=== PATIENT | female | born 1965 | race Two or more races ===

== ENCOUNTER 2017-09-01 07:22 | Outpatient (CLI) | payer OTHER ==
[~2017-09-01 07:22] MED LIST: ALDACTONE25 MG PO; BUCALSEP SPRAY30 ML MM; CIPRO500 MG PO; CLARITIN10 MG PO; COZAAR100 MG PO; ELOCON45 G1 TP; FLEXERIL10 MG PO; FLONASE16 GM NS; FLUCONAZOLE150 MG PO; GILTUSS TR TAB1 EACH PO; GLUCOTROL10 MG PO; GLUMETZA1000 MG PO; JARDIANCE25 MG PO; KETO10TA2 PO; LEVAQUIN750 MG PO; LEVSIN/SL0.125 MG PO; LIPITOR20 MG PO; LOTRISONE CREAM45 GM TP; METFORMIN HCL1000 MG; METFORMIN HCL1000 MG PO; MOTRIN800 MG PO; NAPR500T14 PO; NORVASC10 MG PO; ORALSEP; ORPH100T PO; PERCOCET 5-3251 EACH PO; SYNTHROID150 MCG PO; SYNTHROID50 MCG PO; TESSALON PERLE100 MG PO; TOPROL XL25 M1; TOPROL XL25 M1 PO; TORADOL60 MG IM; VENTOLIN HFA18 GM IH; ZANTAC150 MG PO; ZITHROMAX TRI-500 MG PO; ZITHROMAX200 MG PO; ZITHROMAX500 MG PO; ZYRTEC10 MG PO
== END 2017-09-01 07:34 | disposition home or self-care (01) ==
LOC: LAB 07:22
DX: E83.51 Hypocalcemia (principal); D50.9 Iron deficiency anemia, unspecified; D68.9 Coagulation defect, unspecified; N39.0 Urinary tract infection, site not specified; E03.9 Hypothyroidism, unspecified; Z13.1 Encounter for screening for diabetes mellitus

== ENCOUNTER → 2017-09-17 | Outpatient (CLI) | payer OTHER ==
[~2017-09-17] VITALS: Ht 152.4 cm; Wt 117.5 kg
== END | disposition home or self-care (01) ==
LOC: PPHC 07-01 07:38
DX: Z76.0 Encounter for issue of repeat prescription (principal)

== ENCOUNTER → 2017-11-10 | Emergency (ER) | payer OTHER ==
[~2017-11-10] VITALS: Ht 160 cm; Wt 116.1 kg
[~2017-11-10] MED LIST changes: +BUDESONIDE0.5 MG/2 M IH; +MUCINEX DM ER1 EAC1 PO; +PREDNISOLO15 MG/5 ML PO; +PROMETHAZINE W118 ML PO; +XOPENEX CO1.25 MG/0. IH
== END | disposition home or self-care (01) ==
LOC: ER 23:22
DX: J06.9 Acute upper respiratory infection, unspecified (principal); J03.80 Acute tonsillitis due to other specified organisms

== ENCOUNTER 2017-11-27 11:39 | Emergency (ER) | payer OTHER ==
[~2017-11-27] VITALS: Ht 160 cm; Wt 115.7 kg
== END 2017-11-27 15:26 | disposition home or self-care (01) ==
LOC: ER 11:39 → CPU-OBS 11:40 → ER 15:26
DX: R07.89 Other chest pain (principal)
CPT/HCPCS: G0378; G0379; 93005

== ENCOUNTER → 2017-12-14 | Outpatient (CLI) | payer OTHER | END | disposition home or self-care (01) | LOC: PPHC 12-13 08:29 | DX: Z00.8 Encounter for other general examination (principal) ==

== ENCOUNTER 2017-12-22 10:10 | Emergency (ER) | payer OTHER ==
[~2017-12-22] VITALS: Ht 160 cm; Wt 117.9 kg
== END 2017-12-22 14:19 | disposition home or self-care (01) ==
LOC: ER 10:10
DX: E11.621 Type 2 diabetes mellitus with foot ulcer (principal); L97.513 Non-pressure chronic ulcer of other part of right foot with necrosis of muscle

== ENCOUNTER 2017-12-28 08:19 | Outpatient (CLI) | payer OTHER | END 2017-12-28 08:24 | disposition home or self-care (01) | LOC: LAB 08:19 | DX: E11.65 Type 2 diabetes mellitus with hyperglycemia (principal); E78.00 Pure hypercholesterolemia, unspecified; E89.0 Postprocedural hypothyroidism ==

== ENCOUNTER 2018-01-04 17:48 | Inpatient (IN) | payer OTHER ==
[~2018-01-04] VITALS: Ht 160 cm; Wt 117.9 kg
[2018-01-07] MEDS ORDERED: CLOTRIMAZOLE-745 GM TOP (07:49)
== END 2018-01-07 15:01 | disposition home health service (06) | DRG 638 ==
LOC: ER 17:48 → SEC-K 01-05 11:28 → MEDJ 01-05 11:28
PROC: BQ3MY0Z Magnetic Resonance Imaging (MRI) of Left Foot using Other Contrast, Unenhanced and Enhanced (ICD-10-PCS; principal; 2018-01-05)
PROC: 02HV33Z Insertion of Infusion Device into Superior Vena Cava, Percutaneous Approach (ICD-10-PCS; 2018-01-05)
DX: E11.621 Type 2 diabetes mellitus with foot ulcer (principal); L97.528 Non-pressure chronic ulcer of other part of left foot with other specified severity; I10 Essential (primary) hypertension; E03.8 Other specified hypothyroidism; E66.01 Morbid (severe) obesity due to excess calories; J45.20 Mild intermittent asthma, uncomplicated; E78.4 Other hyperlipidemia; B95.62 Methicillin resistant Staphylococcus aureus infection as the cause of diseases classified elsewhere

== ENCOUNTER 2018-01-23 07:13 | Outpatient (CLI) | payer OTHER ==
[~2018-01-23 07:13] MED LIST changes: +CLOTRIMAZOLE-745 GM TOP
== END 2018-01-23 07:35 | disposition home or self-care (01) ==
LOC: LAB 07:13
DX: E78.2 Mixed hyperlipidemia (principal); E11.8 Type 2 diabetes mellitus with unspecified complications; I11.9 Hypertensive heart disease without heart failure; E66.01 Morbid (severe) obesity due to excess calories; I25.10 Atherosclerotic heart disease of native coronary artery without angina pectoris; E11.9 Type 2 diabetes mellitus without complications

== ENCOUNTER 2018-03-10 07:03 | Outpatient (CLI) | payer OTHER | END 2018-03-10 07:09 | disposition home or self-care (01) | LOC: MAMO-SONO 07:03 | DX: Z12.31 Encounter for screening mammogram for malignant neoplasm of breast (principal); N64.4 Mastodynia ==

== ENCOUNTER → 2018-04-18 06:25 | Outpatient (CLI) | payer OTHER | END | disposition home or self-care (01) | LOC: LAB 06:25 | DX: E11.65 Type 2 diabetes mellitus with hyperglycemia (principal); N18.3 Chronic kidney disease, stage 3 (moderate); E11.21 Type 2 diabetes mellitus with diabetic nephropathy; D63.1 Anemia in chronic kidney disease; N30.00 Acute cystitis without hematuria; R39.0 Extravasation of urine; E78.4 Other hyperlipidemia; E03.8 Other specified hypothyroidism ==

== ENCOUNTER 2018-04-18 06:57 | Outpatient (CLI) | payer OTHER ==
[~2018-04-18 06:57] MED LIST changes: -BUDESONIDE0.5 MG/2 M IH; -CLOTRIMAZOLE-745 GM TOP; -JARDIANCE25 MG PO; -LEVAQUIN750 MG PO; -METFORMIN HCL1000 MG PO; -MUCINEX DM ER1 EAC1 PO; -NAPR500T14 PO; -PERCOCET 5-3251 EACH PO; -PREDNISOLO15 MG/5 ML PO; -PROMETHAZINE W118 ML PO; -XOPENEX CO1.25 MG/0. IH
== END 2018-04-18 07:01 | disposition home or self-care (01) ==
LOC: SONOGRAMA 06:57
DX: R10.84 Generalized abdominal pain (principal); N18.3 Chronic kidney disease, stage 3 (moderate); R31.9 Hematuria, unspecified

== ENCOUNTER 2018-07-14 10:14 | Outpatient (CLI) | payer OTHER ==
[~2018-07-14 10:14] MED LIST changes: +BUDESONIDE0.5 MG/2 M IH; +CLOTRIMAZOLE-745 GM TOP; +JARDIANCE25 MG PO; +LEVAQUIN750 MG PO; +METFORMIN HCL1000 MG PO; +MUCINEX DM ER1 EAC1 PO; +NAPR500T14 PO; +PERCOCET 5-3251 EACH PO; +PREDNISOLO15 MG/5 ML PO; +PROMETHAZINE W118 ML PO; +XOPENEX CO1.25 MG/0. IH
== END 2018-07-14 10:20 | disposition home or self-care (01) ==
LOC: LAB 10:14
DX: J00 Acute nasopharyngitis [common cold] (principal); R50.9 Fever, unspecified

== ENCOUNTER 2018-07-27 07:41 | Outpatient (CLI) | payer OTHER | END 2018-07-27 09:18 | disposition home or self-care (01) | LOC: LAB 07:41 | DX: I10 Essential (primary) hypertension (principal); M54.5 Low back pain; Z01.810 Encounter for preprocedural cardiovascular examination; E11.51 Type 2 diabetes mellitus with diabetic peripheral angiopathy without gangrene; E55.9 Vitamin D deficiency, unspecified; E11.9 Type 2 diabetes mellitus without complications; E66.8 Other obesity; N18.3 Chronic kidney disease, stage 3 (moderate); E11.21 Type 2 diabetes mellitus with diabetic nephropathy; N30.00 Acute cystitis without hematuria; E11.65 Type 2 diabetes mellitus with hyperglycemia; E78.00 Pure hypercholesterolemia, unspecified; E03.8 Other specified hypothyroidism; E78.89 Other lipoprotein metabolism disorders ==

== ENCOUNTER → 2018-07-28 06:54 | Outpatient (CLI) | payer OTHER | END | disposition home or self-care (01) | LOC: LAB 06:54 | DX: I10 Essential (primary) hypertension (principal); M54.5 Low back pain; Z01.810 Encounter for preprocedural cardiovascular examination; E11.51 Type 2 diabetes mellitus with diabetic peripheral angiopathy without gangrene; E55.9 Vitamin D deficiency, unspecified; E11.9 Type 2 diabetes mellitus without complications; E66.8 Other obesity; E03.8 Other specified hypothyroidism; E78.89 Other lipoprotein metabolism disorders ==

== ENCOUNTER 2018-10-12 09:04 | Outpatient (CLI) | payer OTHER | END 2018-10-12 11:59 | disposition HB | LOC: LAB 09:04 | DX: E03.8 Other specified hypothyroidism (principal); E11.51 Type 2 diabetes mellitus with diabetic peripheral angiopathy without gangrene; E11.9 Type 2 diabetes mellitus without complications; E55.9 Vitamin D deficiency, unspecified; E66.8 Other obesity; E78.89 Other lipoprotein metabolism disorders; M54.5 Low back pain; Z01.810 Encounter for preprocedural cardiovascular examination; I11.9 Hypertensive heart disease without heart failure; N18.9 Chronic kidney disease, unspecified ==

== ENCOUNTER 2018-11-17 10:08 | Emergency (ER) | payer OTHER ==
[~2018-11-17] VITALS: Ht 160 cm; Wt 125.2 kg
[2018-11-17] MEDS ORDERED: GLUCOTROL10 MG PO (10:14)
[2018-11-17] MEDS ORDERED: COREG CR10 MG PO (10:15)
[2018-11-17] MEDS ORDERED: ZITHROMAX TRI-500 MG PO (13:18)
[2018-11-17] MEDS ORDERED: MAALOX MAXIMUM355 ML PO (13:18)
== END 2018-11-17 14:57 | disposition home or self-care (01) ==
LOC: ER 10:08
DX: J04.0 Acute laryngitis (principal); J06.9 Acute upper respiratory infection, unspecified

== ENCOUNTER 2019-02-07 07:11 | Outpatient (CLI) | payer OTHER ==
[~2019-02-07 07:11] MED LIST changes: +COREG CR10 MG PO; +MAALOX MAXIMUM355 ML PO
== END 2019-02-07 07:27 | disposition home or self-care (01) ==
LOC: MAMO-SONO 07:11
DX: N64.4 Mastodynia (principal); Z12.31 Encounter for screening mammogram for malignant neoplasm of breast

== ENCOUNTER 2019-02-07 07:34 | Outpatient (CLI) | payer OTHER | END 2019-02-07 07:49 | disposition home or self-care (01) | LOC: LAB 07:34 | DX: D64.89 Other specified anemias (principal); R10.84 Generalized abdominal pain; E78.49 Other hyperlipidemia; R80.8 Other proteinuria; E11.65 Type 2 diabetes mellitus with hyperglycemia; E78.00 Pure hypercholesterolemia, unspecified; E03.8 Other specified hypothyroidism; I11.9 Hypertensive heart disease without heart failure; M54.5 Low back pain; E11.51 Type 2 diabetes mellitus with diabetic peripheral angiopathy without gangrene; E11.9 Type 2 diabetes mellitus without complications; E55.9 Vitamin D deficiency, unspecified; E66.8 Other obesity; E78.89 Other lipoprotein metabolism disorders ==

== ENCOUNTER → 2019-02-09 | Outpatient (CLI) | payer OTHER | END | disposition home or self-care (01) | LOC: SONOGRAMA 11:07 | DX: N64.4 Mastodynia (principal) ==

== ENCOUNTER 2019-03-01 07:39 | Outpatient (CLI) | payer OTHER | END 2019-03-01 17:00 | disposition home or self-care (01) | LOC: SONOGRAMA 07:39 | DX: D25.9 Leiomyoma of uterus, unspecified (principal) ==

== ENCOUNTER 2019-03-02 15:09 | Emergency (ER) | payer OTHER ==
[~2019-03-02] VITALS: Ht 160 cm; Wt 122.9 kg
== END 2019-03-02 17:14 | disposition home or self-care (01) ==
LOC: ER 15:09
DX: S40.012A Contusion of left shoulder, initial encounter (principal); M54.2 Cervicalgia; W18.39XA Other fall on same level, initial encounter; Y93.89 Activity, other specified; Y92.098 Other place in other non-institutional residence as the place of occurrence of the external cause; Y99.8 Other external cause status

== ENCOUNTER 2019-05-07 06:41 | Outpatient (CLI) | payer OTHER | END 2019-05-07 06:46 | disposition home or self-care (01) | LOC: LAB 06:41 | DX: E11.65 Type 2 diabetes mellitus with hyperglycemia (principal); E78.01 Familial hypercholesterolemia ==

== ENCOUNTER 2019-05-14 07:29 | Outpatient (CLI) | payer OTHER | END 2019-05-14 07:36 | disposition home or self-care (01) | LOC: LAB 07:29 | DX: N18.3 Chronic kidney disease, stage 3 (moderate) (principal); E11.21 Type 2 diabetes mellitus with diabetic nephropathy; D63.1 Anemia in chronic kidney disease; N30.00 Acute cystitis without hematuria; E78.49 Other hyperlipidemia; E03.8 Other specified hypothyroidism ==

== ENCOUNTER → 2019-05-22 07:28 | Outpatient (CLI) | payer OTHER | END | disposition home or self-care (01) | LOC: LAB 07:28 | DX: I11.9 Hypertensive heart disease without heart failure (principal); M54.5 Low back pain; E03.8 Other specified hypothyroidism; E11.51 Type 2 diabetes mellitus with diabetic peripheral angiopathy without gangrene; E55.9 Vitamin D deficiency, unspecified; E66.8 Other obesity; E78.89 Other lipoprotein metabolism disorders ==

== ENCOUNTER 2019-06-01 21:11 | Emergency (ER) | payer OTHER ==
[~2019-06-01] VITALS: Ht 160 cm; Wt 114.8 kg
== END 2019-06-01 23:31 | disposition home or self-care (01) ==
LOC: ER 21:11
DX: B34.9 Viral infection, unspecified (principal)

== ENCOUNTER → 2019-07-18 07:26 | Outpatient (CLI) | payer OTHER ==
[~2019-07-18 07:26] MED LIST changes: +ATACAND32 MG PO; +HUMALOG100 UNIT/1 SUBCUTANEO; +LANTUS SOL100 UNIT/1 SUBCUTANEO
== END | disposition home or self-care (01) ==
LOC: LAB 07:26
DX: M12.212 Villonodular synovitis (pigmented), left shoulder (principal); M75.122 Complete rotator cuff tear or rupture of left shoulder, not specified as traumatic; M66.822 Spontaneous rupture of other tendons, left upper arm; M75.22 Bicipital tendinitis, left shoulder

== ENCOUNTER 2019-07-30 06:20 | Day surgery (SDC) | payer OTHER ==
[2019-07-30] MEDS ORDERED: OXYC1TAB9 PO (14:42)
[2019-07-30] MEDS ORDERED: DUI500 PO (14:42)
== END 2019-07-30 19:25 | disposition home or self-care (01) ==
LOC: CIR.AMB 06:20
DX: M75.122 Complete rotator cuff tear or rupture of left shoulder, not specified as traumatic (principal); M12.212 Villonodular synovitis (pigmented), left shoulder; M66.822 Spontaneous rupture of other tendons, left upper arm; M75.22 Bicipital tendinitis, left shoulder

== ENCOUNTER 2019-08-25 09:28 | Outpatient (CLI) | payer OTHER ==
[~2019-08-25 09:28] MED LIST changes: +DUI500 PO; +OXYC1TAB9 PO
== END 2019-08-25 09:37 | disposition home or self-care (01) ==
LOC: LAB 09:28
DX: D64.89 Other specified anemias (principal); R10.84 Generalized abdominal pain; E78.49 Other hyperlipidemia; E11.9 Type 2 diabetes mellitus without complications; R73.09 Other abnormal glucose

== ENCOUNTER 2019-09-18 07:48 | Outpatient (CLI) | payer OTHER | END 2019-09-18 08:22 | disposition home or self-care (01) | LOC: NUCLEAR 07:48 | DX: I10 Essential (primary) hypertension (principal) ==

== ENCOUNTER 2019-10-01 09:07 | Outpatient (CLI) | payer OTHER | END 2019-10-01 09:12 | disposition home or self-care (01) | LOC: RAD 09:07 | DX: M79.672 Pain in left foot (principal) ==

== ENCOUNTER → 2019-10-03 07:08 | Outpatient (CLI) | payer OTHER | END | disposition home or self-care (01) | LOC: LAB 07:08 | DX: R10.2 Pelvic and perineal pain (principal); R10.30 Lower abdominal pain, unspecified; N93.8 Other specified abnormal uterine and vaginal bleeding; E11.65 Type 2 diabetes mellitus with hyperglycemia; I10 Essential (primary) hypertension; E78.2 Mixed hyperlipidemia ==

== ENCOUNTER 2019-10-03 07:13 | Outpatient (CLI) | payer OTHER | END 2019-10-03 10:47 | disposition home or self-care (01) | LOC: SONOGRAMA 07:13 | DX: R10.2 Pelvic and perineal pain (principal); N93.8 Other specified abnormal uterine and vaginal bleeding ==

== ENCOUNTER → 2020-02-24 | Emergency (ER) | payer OTHER ==
[~2020-02-24] VITALS: Ht 160 cm; Wt 120.2 kg
== END | disposition home or self-care (01) ==
LOC: ER 06:58
DX: R53.1 Weakness (principal)

== ENCOUNTER 2020-03-06 12:09 | Emergency (ER) | payer OTHER ==
[~2020-03-06] VITALS: Ht 157.5 cm; Wt 114.8 kg
== END 2020-03-06 18:16 | disposition designated cancer center or children's hospital (05) ==
LOC: ER 12:09
DX: E11.52 Type 2 diabetes mellitus with diabetic peripheral angiopathy with gangrene (principal); I96 Gangrene, not elsewhere classified; L97.512 Non-pressure chronic ulcer of other part of right foot with fat layer exposed

== ENCOUNTER 2020-07-29 09:59 | Outpatient (CLI) | payer OTHER | END 2020-07-29 10:09 | disposition home or self-care (01) | LOC: MAMO-SONO 09:59 | PROVIDERS: ATTEND General Practice | DX: Z12.31 Encounter for screening mammogram for malignant neoplasm of breast (principal); N64.59 Other signs and symptoms in breast ==

== ENCOUNTER 2020-07-29 11:14 | Outpatient (CLI) | payer OTHER | END 2020-07-29 11:23 | disposition home or self-care (01) | LOC: LAB 11:14 | PROVIDERS: ATTEND Internal Medicine | DX: D64.89 Other specified anemias (principal); Z03.818 Encounter for observation for suspected exposure to other biological agents ruled out; E55.9 Vitamin D deficiency, unspecified; N39.0 Urinary tract infection, site not specified; E78.2 Mixed hyperlipidemia; E11.29 Type 2 diabetes mellitus with other diabetic kidney complication ==

== ENCOUNTER 2020-10-16 09:21 | Outpatient (CLI) | payer OTHER | END 2020-10-16 09:25 | disposition home or self-care (01) | LOC: NUCLEAR 09:21 | PROVIDERS: ATTEND Internal Medicine | DX: I10 Essential (primary) hypertension (principal); E78.2 Mixed hyperlipidemia; E26.89 Other hyperaldosteronism; E66.8 Other obesity; N18.9 Chronic kidney disease, unspecified; E11.9 Type 2 diabetes mellitus without complications; E11.21 Type 2 diabetes mellitus with diabetic nephropathy; G45.1 Carotid artery syndrome (hemispheric) ==

== ENCOUNTER → 2020-10-16 | Outpatient (CLI) | payer OTHER | END | disposition home or self-care (01) | LOC: RAD 08:28 | PROVIDERS: ATTEND Physical Medicine & Rehabilitation | DX: M79.672 Pain in left foot (principal); M54.2 Cervicalgia; M54.5 Low back pain ==

== ENCOUNTER 2020-10-24 07:12 | Outpatient (CLI) | payer OTHER | END 2020-10-24 07:36 | disposition home or self-care (01) | LOC: LAB 07:12 | PROVIDERS: ATTEND Internal Medicine | DX: E03.8 Other specified hypothyroidism (principal); E66.8 Other obesity; M54.5 Low back pain; E11.9 Type 2 diabetes mellitus without complications; E55.9 Vitamin D deficiency, unspecified; E78.89 Other lipoprotein metabolism disorders ==

== ENCOUNTER 2020-10-31 07:33 | Outpatient (CLI) | payer OTHER | END 2020-10-31 07:38 | disposition home or self-care (01) | LOC: LAB 07:33 | PROVIDERS: ATTEND Specialist/Technologist, Other Nephrology | DX: N30.00 Acute cystitis without hematuria (principal); E03.8 Other specified hypothyroidism; D63.1 Anemia in chronic kidney disease; E11.21 Type 2 diabetes mellitus with diabetic nephropathy; N18.30 Chronic kidney disease, stage 3 unspecified ==

== ENCOUNTER → 2021-01-15 | Outpatient (CLI) | payer OTHER | END | disposition home or self-care (01) | LOC: LAB 06:40 | PROVIDERS: ATTEND Internal Medicine | DX: I10 Essential (primary) hypertension (principal); M54.5 Low back pain; I11.9 Hypertensive heart disease without heart failure; E03.9 Hypothyroidism, unspecified; E11.51 Type 2 diabetes mellitus with diabetic peripheral angiopathy without gangrene; E11.42 Type 2 diabetes mellitus with diabetic polyneuropathy; E55.9 Vitamin D deficiency, unspecified; E66.8 Other obesity; E78.9 Disorder of lipoprotein metabolism, unspecified; E11.65 Type 2 diabetes mellitus with hyperglycemia; Z89.611 Acquired absence of right leg above knee; Z79.84 Long term (current) use of oral hypoglycemic drugs ==

== ENCOUNTER → 2021-06-25 08:30 | Outpatient (CLI) | payer OTHER | END | disposition home or self-care (01) | LOC: LAB 08:30 | PROVIDERS: ATTEND General Practice | DX: I10 Essential (primary) hypertension (principal); E78.49 Other hyperlipidemia; E03.8 Other specified hypothyroidism; E55.9 Vitamin D deficiency, unspecified; R19.5 Other fecal abnormalities; E11.9 Type 2 diabetes mellitus without complications ==

== ENCOUNTER 2021-06-30 09:43 | Outpatient (CLI) | payer OTHER | END 2021-06-30 09:58 | disposition home or self-care (01) | LOC: MAMO-SONO 09:43 | PROVIDERS: ATTEND General Practice | DX: R92.0 Mammographic microcalcification found on diagnostic imaging of breast (principal); Z12.31 Encounter for screening mammogram for malignant neoplasm of breast ==

== ENCOUNTER 2021-06-30 12:42 | Outpatient (CLI) | payer OTHER | END 2021-06-30 15:00 | disposition home or self-care (01) | LOC: LAB 12:42 | PROVIDERS: ATTEND General Practice | DX: E03.8 Other specified hypothyroidism (principal); I10 Essential (primary) hypertension; E78.49 Other hyperlipidemia; E55.9 Vitamin D deficiency, unspecified; R19.5 Other fecal abnormalities; E11.9 Type 2 diabetes mellitus without complications ==

== ENCOUNTER 2021-08-17 09:04 | Emergency (ER) | payer OTHER ==
[~2021-08-17] VITALS: Ht 160 cm; Wt 117.0 kg
[2021-08-17] MEDS ORDERED: ELIQUIS5 M1 PO (09:14)
== END 2021-08-17 12:48 | disposition home or self-care (01) ==
LOC: ER 09:04
DX: U07.1 COVID-19 (principal); E11.9 Type 2 diabetes mellitus without complications; I10 Essential (primary) hypertension; Z79.4 Long term (current) use of insulin

== ENCOUNTER 2021-08-31 14:50 | Outpatient (CLI) | payer OTHER ==
[~2021-08-31 14:50] MED LIST changes: +ELIQUIS5 M1 PO
== END 2021-08-31 15:00 | disposition home or self-care (01) ==
LOC: PPH VACUNA 14:50
PROVIDERS: ATTEND Emergency Medicine Pediatric Emergency Medicine
DX: Z23 Encounter for immunization (principal)

== ENCOUNTER 2021-10-14 12:56 | Outpatient (CLI) | payer OTHER | END 2021-10-14 12:57 | disposition home or self-care (01) | LOC: NUCLEAR 12:56 | PROVIDERS: ATTEND General Practice | DX: M85.89 Other specified disorders of bone density and structure, multiple sites (principal); Z13.820 Encounter for screening for osteoporosis ==

== ENCOUNTER 2021-10-28 09:56 | Outpatient (CLI) | payer OTHER | END 2021-10-28 09:57 | disposition home or self-care (01) | LOC: NUCLEAR 09:56 | PROVIDERS: ATTEND General Practice | DX: I82.409 Acute embolism and thrombosis of unspecified deep veins of unspecified lower extremity (principal); I74.9 Embolism and thrombosis of unspecified artery ==

== ENCOUNTER 2021-10-29 10:10 | Outpatient (CLI) | payer OTHER | END 2021-10-29 10:11 | disposition home or self-care (01) | LOC: NUCLEAR 10:10 | PROVIDERS: ATTEND General Practice | DX: I82.409 Acute embolism and thrombosis of unspecified deep veins of unspecified lower extremity (principal) ==

== ENCOUNTER 2021-11-03 08:13 | Outpatient (CLI) | payer OTHER | END 2021-11-03 08:14 | disposition home or self-care (01) | LOC: NUCLEAR 08:13 | PROVIDERS: ATTEND General Practice | DX: C54.1 Malignant neoplasm of endometrium (principal) ==

== ENCOUNTER 2022-07-01 07:30 | Outpatient (CLI) | payer OTHER | END 2022-07-01 07:45 | disposition home or self-care (01) | LOC: MAMO-SONO 07:30 | PROVIDERS: ATTEND Obstetrics & Gynecology Gynecologic Oncology | DX: Z12.31 Encounter for screening mammogram for malignant neoplasm of breast (principal); N64.89 Other specified disorders of breast; N64.59 Other signs and symptoms in breast ==

== ENCOUNTER 2022-07-05 10:05 | Emergency (ER) | payer OTHER ==
[~2022-07-05] VITALS: Ht 160 cm; Wt 122.5 kg
[2022-07-05] MEDS ORDERED: SYNTHROID88 MCG (10:18)
[2022-07-05] MEDS ORDERED: BENADRYL25 MG PO (12:16)
[2022-07-05] MEDS ORDERED: VALTREX1000 MG PO (12:16)
== END 2022-07-05 12:29 | disposition home or self-care (01) ==
LOC: ER 10:05
DX: R21 Rash and other nonspecific skin eruption (principal)

== ENCOUNTER 2022-08-08 08:33 | Emergency (ER) | payer OTHER ==
[~2022-08-08] VITALS: Ht 160 cm; Wt 122.5 kg
[~2022-08-08 08:33] MED LIST changes: +BENADRYL25 MG PO; +SYNTHROID88 MCG; +VALTREX1000 MG PO
[2022-08-08] MEDS ORDERED: TORADOL60 MG IM (10:24)
== END 2022-08-08 10:35 | disposition home or self-care (01) ==
LOC: ER 08:33
DX: M54.50 Low back pain, unspecified (principal); W19.XXXA Unspecified fall, initial encounter; Y99.9 Unspecified external cause status; E11.9 Type 2 diabetes mellitus without complications; I10 Essential (primary) hypertension; D68.59 Other primary thrombophilia; Z91.013 Allergy to seafood; Z88.5 Allergy status to narcotic agent; Z88.2 Allergy status to sulfonamides; Z79.4 Long term (current) use of insulin; Z89.511 Acquired absence of right leg below knee; Z79.01 Long term (current) use of anticoagulants

== ENCOUNTER 2022-12-07 06:49 | Emergency (ER) | payer OTHER ==
[~2022-12-07] VITALS: Ht 161.3 cm; Wt 127.0 kg
[2022-12-07] MEDS ORDERED: CEPHALEXIN500 M1 PO (09:22)
== END 2022-12-07 09:32 | disposition home or self-care (01) ==
LOC: ER 06:49
DX: S90.425A Blister (nonthermal), left lesser toe(s), initial encounter (principal); X58.XXXA Exposure to other specified factors, initial encounter; Y93.9 Activity, unspecified; Y92.9 Unspecified place or not applicable; Y99.9 Unspecified external cause status; Z88.8 Allergy status to other drugs, medicaments and biological substances; Z91.013 Allergy to seafood

== ENCOUNTER 2022-12-29 14:22 | Emergency (ER) | payer OTHER ==
[~2022-12-29] VITALS: Ht 160 cm; Wt 127.0 kg
[~2022-12-29 14:22] MED LIST changes: +CEPHALEXIN500 M1 PO
== END 2022-12-29 16:58 | disposition home or self-care (01) ==
LOC: ER 14:22
DX: M25.511 Pain in right shoulder (principal); Z88.8 Allergy status to other drugs, medicaments and biological substances; Z91.013 Allergy to seafood

== ENCOUNTER 2023-01-03 10:06 | Outpatient (CLI) | payer OTHER | END 2023-01-03 13:45 | disposition home or self-care (01) | LOC: SONOGRAMA 10:06 | DX: M25.511 Pain in right shoulder (principal) ==

== ENCOUNTER 2023-07-12 07:53 | Outpatient (CLI) | payer OTHER | END 2023-07-12 08:02 | disposition home or self-care (01) | LOC: TOM 07:53 | PROVIDERS: ATTEND Obstetrics & Gynecology Gynecologic Oncology | DX: C54.1 Malignant neoplasm of endometrium (principal); Z88.5 Allergy status to narcotic agent; Z91.013 Allergy to seafood ==

== ENCOUNTER 2023-09-22 09:12 | Outpatient (CLI) | payer OTHER | END 2023-09-22 09:18 | disposition home or self-care (01) | LOC: TOM 09:12 | PROVIDERS: ATTEND Obstetrics & Gynecology Gynecologic Oncology | DX: C54.1 Malignant neoplasm of endometrium (principal) ==

== ENCOUNTER 2024-02-17 07:38 | Outpatient (CLI) | payer OTHER | END 2024-02-17 07:39 | disposition home or self-care (01) | LOC: NUCLEAR 07:38 | DX: C55 Malignant neoplasm of uterus, part unspecified (principal); R91.1 Solitary pulmonary nodule | CPT/HCPCS: 78815; A9552 ==

== ENCOUNTER 2024-05-24 08:00 | Outpatient (CLI) | payer OTHER | END 2024-05-24 08:10 | disposition home or self-care (01) | LOC: MAMO-SONO 08:00 | DX: Z12.39 Encounter for other screening for malignant neoplasm of breast (principal); Z12.31 Encounter for screening mammogram for malignant neoplasm of breast ==

== ENCOUNTER 2024-09-04 08:59 | Outpatient (CLI) | payer OTHER | END 2024-09-04 09:03 | disposition home or self-care (01) | LOC: SONOGRAMA 08:59 | PROVIDERS: ATTEND Internal Medicine Endocrinology, Diabetes & Metabolism | DX: E04.2 Nontoxic multinodular goiter (principal); R59.0 Localized enlarged lymph nodes ==